=== PATIENT | female | born 1960 | race Caucasian/White ===

== ENCOUNTER 2019-05-03 12:35 | Inpatient (IN) ==
[2019-05-03] MEDS ORDERED: TUSSIONEX PENNKINETIC SUSP PO PRN (12:44)
[2019-05-03] MEDS ORDERED: LEVAQUIN PREMIX IV 500 MG 500 MG/100 ML BAG IV SCH (13:00)
--- NOTE | 2019-05-03 13:17 | DR.UPDATE ---
H&P Update History and Physical Update: History and Physical reviewed and patient examined. 05/03/2019 Changes noted: NO
--- NOTE | 2019-05-03 15:56 | RAD ---
HISTORY: Shortness of breath, pneumonia Study: Two-view chest Comparison: No priors Findings: Trachea is midline. Heart size is normal. A few linear foci atelectasis or scarring are present in the lung bases bilaterally. No dense consolidation, CHF, pleural fluid or pneumothorax seen. Osseous structures are intact. IMPRESSION: Few small subsegmental linear foci of atelectasis or scarring are present bases. No consolidation is seen. Reported By:
[2019-05-03 16:15] LABS: BASOPHILS % (AUTO) 0.7 % (0.2-1.0); EOSINOPHILS # (AUTO) 0.1 x10^3/uL (0.0-0.2); HEMATOCRIT 43.7 % (36.0-47.0); HEMOGLOBIN 14.8 g/dL (12.0-16.0); LYMPHOCYTES # (AUTO) 1.9 X10^3/uL (1.3-2.9); LYMPHOCYTES % (AUTO) 33.8 % (21.0-51.0); MEAN CORPUSCULAR HEMOGLOBIN 31.3 pg (27.0-34.0); MEAN CORPUSCULAR HGB CONC 33.8 g/dL (33.0-35.0); MEAN CORPUSCULAR VOLUME 92.7 fL (80.0-100.0); MEAN PLATELET VOLUME 7.5 fL (7.4-11.0); MONOCYTES # (AUTO) 0.4 x10^3/uL (0.3-0.8); MONOCYTES % (AUTO) 7.5 % (0.0-13.0); NEUTROPHILS # (AUTO) 3.2 x10^3/uL (2.2-4.8); PLATELET COUNT 151 X10^3/uL (150.0-450.0); RED BLOOD COUNT 4.71 X10^6/uL (3.5-5.4); RED CELL DISTRIBUTION WIDTH 14.5 % (11.6-16.5); WHITE BLOOD COUNT 5.7 X10^3/uL (3.6-10.0)
[2019-05-03 16:22] LABS: ALANINE AMINOTRANSFERASE 32 Units/L (12-78); ALKALINE PHOSPHATASE 129 Units/L (46-116); ASPARTATE AMINO TRANSFERASE 26 Units/L (15-37); BLOOD UREA NITROGEN 15 mg/dL (7-18); CALCIUM 8.6 mg/dL (8.5-10.1); CARBON DIOXIDE 28.4 mmol/L (21-32); CHLORIDE 98 mmol/L (98-107); COR NA(FOR HYPERGLY) 138 mmol/L (136-145); SODIUM 137 mmol/L (136-145); TOTAL PROTEIN 7.5 g/dL (6.4-8.2); eGFR NON BLACK RACES > 60 (>60)
[2019-05-03] MEDS ORDERED: TYLENOL 325 MG TAB PO PRN (16:36)
[2019-05-03 16:37] LABS: ABG BASE EXCESS 2.4 mmol/L (-2.0-2.0); ABG HCO3 26.4 mmol/L (22-26)
[2019-05-03 16:38] LABS: ABG ALLEN TEST POS
[2019-05-03] MEDS ORDERED: DUONEB 0.5 MG/3 MG NEB SCH (17:00)
[2019-05-03] MEDS: DUONEB 0.5 MG/3 MG NEB SCH ×2 (17:05→21:15)
[2019-05-03] MEDS ORDERED: ZOFRAN INJ 4 MG VIAL IVP PRN (17:12)
[2019-05-03] MEDS ORDERED: TYLENOL 325 MG TAB PO ONE (17:23)
[2019-05-03] MEDS ORDERED: ZOFRAN INJ 4 MG VIAL ONE (17:23)
[2019-05-03] MEDS: TYLENOL 325 MG TAB PO PRN (17:31)
[2019-05-03 17:52] VITALS: BMI 36.0
[2019-05-03] MEDS ORDERED: KLOR-CON PO PRN (18:17)
[2019-05-03] MEDS ORDERED: POTASSIUM CHL 60 MEQ/NS 0.45% 500 ML IV PRN (18:17)
[2019-05-03] MEDS ORDERED: K-RIDER 10 MEQ/NS 100 ML 10 MEQ/100 ML BAG IV PRN (18:17)
[2019-05-03] MEDS ORDERED: MAGNESIUM SULFATE 1 GRAM/100 mL PREMIX 1 GM/100 ML BAG IV PRN (18:17)
[2019-05-03] MEDS ORDERED: POTASSIUM CHL 40 MEQ/NS 0.45% 500 ML IV PRN (18:17)
[2019-05-03] MEDS ORDERED: POTASSIUM CHLORIDE LIQ 20 MEQ UDC PO PRN (18:17)
[2019-05-03] MEDS ORDERED: MICRO K EXTEN CAP 10 MEQ PO PRN (18:17)
[2019-05-03] MEDS ORDERED: K-DUR TAB 20 MEQ PO PRN (18:17)
[2019-05-03] MEDS ORDERED: NS 1/2 1000 ML IV 1,000 ML IV ONE (18:28)
[2019-05-03] MEDS: NS 1/2 1000 ML IV 1,000 ML IV SCH (18:37)
[2019-05-03] MEDS: ROBITUSSIN DM PO SCH ×3 (18:38→22:00)
[2019-05-03] MEDS ORDERED: PULMICORT NEB TX 0.5 MG NEB SCH (21:00)
[2019-05-03] MEDS: SNACK - Diabetic Appropriate PO SCH (21:00)
[2019-05-03] MEDS: BROVANA IN SCH (21:05)
[2019-05-03] MEDS: PULMICORT NEB TX 0.5 MG NEB SCH (21:15)
[2019-05-03] MEDS: RESTORIL CAP 15 MG PO PRN (22:35)
[2019-05-04 06:07] LABS: BASOPHILS % (AUTO) 0.5 % (0.2-1.0); EOSINOPHILS % (AUTO) 0.6 % (0.9-2.9); HEMATOCRIT 37.2 % (36.0-47.0); LYMPHOCYTES # (AUTO) 2.3 X10^3/uL (1.3-2.9); LYMPHOCYTES % (AUTO) 48.1 % (21.0-51.0); MEAN CORPUSCULAR HEMOGLOBIN 31.4 pg (27.0-34.0); MEAN CORPUSCULAR HGB CONC 33.8 g/dL (33.0-35.0); MEAN PLATELET VOLUME 8.2 fL (7.4-11.0); MONOCYTES # (AUTO) 0.3 x10^3/uL (0.3-0.8); MONOCYTES % (AUTO) 6.6 % (0.0-13.0); NEUTROPHILS # (AUTO) 2.1 x10^3/uL (2.2-4.8); NEUTROPHILS % (AUTO) 44.2 % (42.0-75.0); PLATELET COUNT 117 X10^3/uL (150.0-450.0); RED CELL DISTRIBUTION WIDTH 14.7 % (11.6-16.5); WHITE BLOOD COUNT 4.7 X10^3/uL (3.6-10.0)
[2019-05-04] MEDS: NS 1/2 1000 ML IV 1,000 ML IV SCH ×3 (06:07→17:03)
[2019-05-04 06:25] LABS: ALANINE AMINOTRANSFERASE 25 Units/L (12-78); ALBUMIN 3.2 g/dL (3.4-5.0); ALKALINE PHOSPHATASE 99 Units/L (46-116); ASPARTATE AMINO TRANSFERASE 22 Units/L (15-37); BLOOD UREA NITROGEN 12 mg/dL (7-18); CALCIUM 7.8 mg/dL (8.5-10.1); CARBON DIOXIDE 24.5 mmol/L (21-32); CHLORIDE 101 mmol/L (98-107); COR CA(FOR HYPOALB) 8.4 mg/dL (8.5-10.1); COR NA(FOR HYPERGLY) 139 mmol/L (136-145); CREATININE 0.77 mg/dL (0.55-1.02); HEMOGLOBIN 12.5 g/dL (12.0-16.0); MAGNESIUM 1.6 mg/dL (1.7-2.9); SODIUM 137 mmol/L (136-145); TOTAL PROTEIN 6.1 g/dL (6.4-8.2); eGFR NON BLACK RACES > 60 (>60)
[2019-05-04] MEDS: BROVANA IN SCH ×2 (08:45→21:17)
[2019-05-04] MEDS: DUONEB 0.5 MG/3 MG NEB SCH ×5 (08:50→21:07)
[2019-05-04] MEDS: PULMICORT NEB TX 0.5 MG NEB SCH ×2 (08:50→21:07)
[2019-05-04] MEDS ORDERED: LEVAQUIN PREMIX IV 500 MG 500 MG/100 ML BAG IV SCH (09:00)
[2019-05-04] MEDS ORDERED: NS 1/2 1000 ML IV 1,000 ML IV ONE (09:35)
[2019-05-04] MEDS: ROBITUSSIN DM PO SCH ×4 (09:37→21:48)
[2019-05-04] MEDS ORDERED: PHARMACY CONSULT - VANCOMYCIN XX SCH (11:00)
[2019-05-04] MEDS ORDERED: PriLOSEC PO PRN (11:01)
--- NOTE | 2019-05-04 11:01 | PCM.PROG ---
Progress Note Progress Note for Day of Date of Exam: 05/04/19 Subjective Subjective: Patient seen at bedside. She reports not feeling well for the last 3-4 weeks. She has failed multiple antibiotics outpatient for pneumonia including Levaquin, Rocephin and Amoxicillin. She reports SOB on exertion, non- productive cough. She was diagnosed with pneumonia 3 weeks ago but never got better. She also reports abdominal distention, nausea and diarrhea. She has been having lose watery stools for the last week, 3-4 times a day. CXR on admission showed atelectasis, she was directly admitted from clinic and started on levaquin. She has a hx of recurrent pneumonia, DM, HTN and seasonal allergies. She is currently on RA, sats >90%. Past Medical Family Social History Past Med/Fam/Surg Hx: No changes since H&P Allergies: Allergies Penicillins Allergy (Verified 05/03/19 16:35) Review of Systems ROS: No change since H&P Vital Signs and I&O's Vital Signs: Temperature 98.2 F Pulse Rate [Left Brachial] 94 Pulse Rate 96 Respiratory Rate 20 Blood Pressure [Left Arm] 143/74 O2 Sat by Pulse Oximetry 96 Intake and Output: Intake & Output 05/01/19 05/02/19 05/03/19 05/04/19 23:59 23:59 23:59 23:59 Intake Total 1040 / 1040 1040 / 1040 Balance 1040 / 1040 1040 / 1040 Physical Exam Oriented: Normal Eyes: Normal Nose: Normal Throat: Normal Respiratory: Wheezes and Rhonchi Cardiovascular: Normal Auscultation: Bowel Sounds: Normal Tenderness: Other (distended) Skin: Normal Musculoskeletal: Normal Psychiatric: Normal Mood Description: Calm Speech Pattern: Clear and Appropriate Laboratory and Diagnostics Result Diagrams: 05/04/19 04:47 05/04/19 04:47 Labs: 05/03/19 16:32 Sputum - Expectorated Sputum - Final Laboratory WBC 4.7 X10^3/uL (3.6-10.0) 05/04/19 04:47 RBC 4.00 X10^6/uL (3.5-5.4) 05/04/19 04:47 Hgb 12.5 g/dL (12.0-16.0) D 05/04/19 04:47 Hct 37.2 % (36.0-47.0) 05/04/19 04:47 MCV 93.0 fL (80.0-100.0) 05/04/19 04:47 MCH 31.4 pg (27.0-34.0) 05/04/19 04:47 MCHC 33.8 g/dL (33.0-35.0) 05/04/19 04:47 RDW 14.7 % (11.6-16.5) 05/04/19 04:47 Plt Count 117 X10^3/uL (150.0-450.0) L 05/04/19 04:47 MPV 8.2 fL (7.4-11.0) 05/04/19 04:47 Neut % (Auto) 44.2 % (42.0-75.0) 05/04/19 04:47 Lymph % (Auto) 48.1 % (21.0-51.0) 05/04/19 04:47 [place] % (Auto) 6.6 % (0.0-13.0) 05/04/19 04:47 Eos % (Auto) 0.6 % (0.9-2.9) L 05/04/19 04:47 Baso % (Auto) 0.5 % (0.2-1.0) 05/04/19 04:47 Neut # (Auto) 2.1 x10^3/uL (2.2-4.8) L 05/04/19 04:47 Lymph # (Auto) 2.3 X10^3/uL (1.3-2.9) 05/04/19 04:47 [place] # (Auto) 0.3 x10^3/uL (0.3-0.8) 05/04/19 04:47 Eos # (Auto) 0.0 x10^3/uL (0.0-0.2) 05/04/19 04:47 Baso # (Auto) 0.0 X10^3/uL (0.0-0.1) 05/04/19 04:47 Absolute Nucleated RBC 0.1 /100WBC 05/04/19 04:47 D-Dimer 258 ng/mL (0-400) 05/03/19 15:59 Sample Site Rra 05/03/19 16:33 ABG pH 7.450 (7.35-7.45) 05/03/19 16:33 ABG pCO2 38.0 mmHg (35.0-45.0) 05/03/19 16:33 ABG pO2 68.0 mmHg (80.0-100.0) L 05/03/19 16:33 ABG HCO3 26.4 mmol/L (22-26) H 05/03/19 16:33 ABG O2 Saturation 94.0 % (90-100) 05/03/19 16:33 ABG Base Excess 2.4 mmol/L (-2.0-2.0) H 05/03/19 16:33 Rafa Test Pos 05/03/19 16:33 A-a Gradient 34.0 mmHg 05/03/19 16:33 FiO2 21.0 05/03/19 16:33 Blood Gas Comments Pt toll well eb 05/03/19 16:33 Sodium 137 mmol/L (136-145) 05/04/19 04:47 Corrected Sodium 139 mmol/L (136-145) 05/04/19 04:47 Potassium 3.5 mmol/L (3.5-5.1) 05/04/19 04:47 Chloride 101 mmol/L (98-107) 05/04/19 04:47 Carbon Dioxide 24.5 mmol/L (21-32) 05/04/19 04:47 BUN 12 mg/dL (7-18) 05/04/19 04:47 Creatinine 0.77 mg/dL (0.55-1.02) 05/04/19 04:47 Est GFR (MDRD) Af Amer > 60 (>60) 05/04/19 04:47 Est GFR (MDRD) Non-Af > 60 (>60) 05/04/19 04:47 Glucose 168 mg/dL (65-99) H 05/04/19 04:47 POC Glucose (mg/dL) 142 mg/dL (65-99) H 05/04/19 07:07 Calcium 7.8 mg/dL (8.5-10.1) L 05/04/19 04:47 Corrected Calcium 8.4 mg/dL (8.5-10.1) L 05/04/19 04:47 Magnesium 1.6 mg/dL (1.7-2.9) L 05/04/19 04:47 Total Bilirubin 0.40 mg/dL (0.2-1.0) 05/04/19 04:47 AST 22 Units/L (15-37) 05/04/19 04:47 ALT 25 Units/L (12-78) 05/04/19 04:47 Alkaline Phosphatase 99 Units/L (46-116) 05/04/19 04:47 Total Protein 6.1 g/dL (6.4-8.2) L 05/04/19 04:47 Albumin 3.2 g/dL (3.4-5.0) L 05/04/19 04:47 Globulin 2.9 g/dL (2.5-4.5) 05/04/19 04:47 Albumin/Globulin Ratio 1.1 Ratio (1.1-2.1) 05/04/19 04:47 Plan (1) Failure of outpatient treatment: Status: Acute (2) Atelectasis: Status: Acute (3) Pneumonia: Status: Acute Plan: Patient failed outpatient treatment with Levaquin, Rocephin, Amoxicillin and steroids. Started on levaquin on admission, will switch to Vancomyin and Cefepime to broaden coverage, add solumedrol Ct-chest ordered (4) Abdominal distension: Status: Acute Plan: ordered KUB (5) Thrombocytopenia: Status: Acute Plan: plt:117, repeat CBC in AM (6) Diarrhea: Status: Acute Plan: lose water stools, will check C.diff, fecal WBCs, stool culture (7) Hypertension: Status: Acute (8) Seasonal allergies: Status: Acute (9) Diabetes: Status: Acute
--- NOTE | 2019-05-04 11:21 | RAD ---
Examination: KUB History: Abdominal distention Findings: The intestinal gas pattern is normal and nonobstructive. There is no evidence for organ enlargement, mass, ascites or pathologic calcification. Impression: Examination within normal limits. Reported By:
[2019-05-04] MEDS ORDERED: ZESTRIL TAB 20 MG ONE (11:22)
[2019-05-04] MEDS: TYLENOL 325 MG TAB PO PRN (11:27)
[2019-05-04] MEDS: ZESTRIL TAB 20 MG PO SCH (11:28)
[2019-05-04] MEDS: SOLU-Medrol 125 MG VIAL IVP SCH ×3 (11:29→21:51)
[2019-05-04] MEDS: MAXIPIME VIAL 1 GRAM IVP SCH ×2 (11:29→21:51)
[2019-05-04] MEDS ORDERED: VANCOMYCIN HCL 250 MG, VANCOMYCIN HCL 1 G in D5W 250 ML IV 250 ML IV SCH (12:00)
[2019-05-04] MEDS ORDERED: VANCOMYCIN HCL ONE ×4 (12:00→23:55)
[2019-05-04] MEDS ORDERED: NS 250 ML IV 250 ML IV ONE ×2 (12:00→23:54)
[2019-05-04] MEDS: HumuLIN R SUBCUT PRN ×3 (12:15→21:52)
--- NOTE | 2019-05-04 14:03 | CT ---
HISTORY: Dyspnea and infection. Study: CT chest without contrast Comparison: Chest radiograph dated 05/03/2019 Technique: Multiple axial images of the chest were obtained from the thoracic inlet to the upper abdomen without the administration of IV contrast. Findings: The thoracic inlet is unremarkable. There is scattered aortic atherosclerosis. The heart is normal in size without a pericardial effusion. Dense coronary atherosclerosis is present. There are patchy, diffuse, airspace and ground-glass changes seen throughout the lung [place], most severe in the right lower lobe. These findings can be seen with infectious etiologies, inflammation, or atypical infarctions. This needs clinical context. No aneurysm or pathologic adenopathy is seen. No axillary adenopathy is observed. There is hepatic steatosis. The upper abdomen shows no other acute findings. No other cardiopulmonary abnormality is seen. No acute fracture or destructive lytic bony lesion is observed. There is mild spinal spondylosis appreciated. IMPRESSION: Patchy, diffuse, airspace and ground-glass changes seen throughout the lung [place], most severe in the right lower lobe. These findings can be seen with infectious etiologies, inflammation, or atypical infarctions. This needs clinical context. Follow-up to complete resolution is recommended following appropriate treatment. Hepatic steatosis also noted. Reported By:
[2019-05-04] MEDS: MAG-OX TAB PO SCH (14:13)
[2019-05-04 15:33] LABS: RHEUMATOID FACTOR NEGATIVE (NEGATIVE)
[2019-05-04 15:53] LABS: MYCOPLASMA PNEUMONIAE IGM AB NEGATIVE (NEGATIVE)
[2019-05-04] MEDS: SNACK - Diabetic Appropriate PO SCH (21:47)
[2019-05-04] MEDS: NEURONTIN CAP 300 MG PO SCH (21:50)
[2019-05-04] MEDS: SINGULAIR TAB 10 MG PO SCH (21:50)
[2019-05-04] MEDS: RESTORIL CAP 15 MG PO PRN (22:30)
[2019-05-04] MEDS ORDERED: NS IV SCH (23:59)
[2019-05-04] MEDS ORDERED: VANCOMYCIN HCL IV SCH (23:59)
[2019-05-05 06:08] LABS: BASOPHILS % (AUTO) 0.2 % (0.2-1.0); EOSINOPHILS % (AUTO) 0.1 % (0.9-2.9); HEMATOCRIT 37.4 % (36.0-47.0); HEMOGLOBIN 12.7 g/dL (12.0-16.0); LYMPHOCYTES % (AUTO) 15.8 % (21.0-51.0); MEAN CORPUSCULAR HEMOGLOBIN 31.9 pg (27.0-34.0); MEAN CORPUSCULAR VOLUME 93.9 fL (80.0-100.0); MEAN PLATELET VOLUME 8.4 fL (7.4-11.0); MONOCYTES # (AUTO) 0.2 x10^3/uL (0.3-0.8); MONOCYTES % (AUTO) 2.8 % (0.0-13.0); NEUTROPHILS # (AUTO) 5.1 x10^3/uL (2.2-4.8); NEUTROPHILS % (AUTO) 81.1 % (42.0-75.0); PLATELET COUNT 129 X10^3/uL (150.0-450.0); RED BLOOD COUNT 3.98 X10^6/uL (3.5-5.4); RED CELL DISTRIBUTION WIDTH 14.6 % (11.6-16.5); WHITE BLOOD COUNT 6.3 X10^3/uL (3.6-10.0)
[2019-05-05] MEDS: SOLU-Medrol 125 MG VIAL IVP SCH ×3 (06:18→21:50)
[2019-05-05] MEDS: MAG-OX TAB PO SCH (06:18)
[2019-05-05] MEDS: NS 1/2 1000 ML IV 1,000 ML IV SCH ×3 (06:19→22:21)
[2019-05-05] MEDS: HumuLIN R SUBCUT PRN ×4 (06:21→22:45)
[2019-05-05 06:24] LABS: BLOOD UREA NITROGEN 14 mg/dL (7-18); CALCIUM 8.3 mg/dL (8.5-10.1); CHLORIDE 104 mmol/L (98-107); COR NA(FOR HYPERGLY) 142 mmol/L (136-145); CREATININE 0.78 mg/dL (0.55-1.02); MAGNESIUM 1.8 mg/dL (1.7-2.9); SODIUM 138 mmol/L (136-145); eGFR NON BLACK RACES > 60 (>60)
[2019-05-05] MEDS: DUONEB 0.5 MG/3 MG NEB SCH ×4 (08:24→20:17)
[2019-05-05] MEDS: PULMICORT NEB TX 0.5 MG NEB SCH ×2 (08:24→20:17)
[2019-05-05] MEDS: BROVANA IN SCH ×2 (08:34→20:35)
[2019-05-05] MEDS ORDERED: ZESTRIL TAB 20 MG ONE (08:53)
[2019-05-05] MEDS: MAXIPIME VIAL 1 GRAM IVP SCH ×2 (09:04→21:50)
[2019-05-05] MEDS: ROBITUSSIN DM PO SCH ×4 (09:04→21:50)
[2019-05-05] MEDS: ZESTRIL TAB 20 MG PO SCH (09:05)
[2019-05-05] MEDS ORDERED: NS 250 ML IV 250 ML IV ONE ×2 (09:15→22:40)
[2019-05-05] MEDS ORDERED: VANCOMYCIN HCL ONE ×4 (09:15→22:40)
[2019-05-05] MEDS: VANCOMYCIN HCL IV SCH ×5 (09:19→22:51)
[2019-05-05] MEDS: NS IV SCH ×5 (09:19→22:51)
[2019-05-05] MEDS ORDERED: MYLICON TAB 80 MG CHEW PO PRN (09:56)
[2019-05-05] MEDS ORDERED: MIRALAX POWDER (1 DOSE 17 G) PO STA (09:56)
[2019-05-05] MEDS ORDERED: MIRALAX POWDER (1 DOSE 17 G) ONE (10:02)
--- NOTE | 2019-05-05 11:21 | PCM.PROG ---
Progress Note Progress Note for Day of Date of Exam: 05/05/19 Subjective Subjective: Patient seen this AM, reports feeling a lot better, breathing has improved. She still feels very bloated, no BM since admission. She has been eating and drinking ok, denies nausea or vomiting. Still has some dry cough. Denies fever or chills. CT chest yesterday showed some patchy ground glass opacities suggestive of infection vs inflammation. She does see a hide mill worker for arthritis and has extensive work up but not diagnosed with anything. KUB done yesterday was negative. Past Medical Family Social History Past Med/Fam/Surg Hx: No changes since H&P Allergies: Allergies Penicillins Allergy (Verified 05/03/19 16:35) Review of Systems ROS: No change since H&P Vital Signs and I&O's Vital Signs: Temperature 98.3 F Pulse Rate [Left Brachial] 92 Pulse Rate 113 Respiratory Rate 18 Blood Pressure [Left Arm] 142/83 O2 Sat by Pulse Oximetry 94 Intake and Output: Intake & Output 05/02/19 05/03/19 05/04/19 05/05/19 23:59 23:59 23:59 23:59 Intake Total 1040 / 1040 4460 / 4460 750 / 750 Balance 1040 / 1040 4460 / 4460 750 / 750 Physical Exam Oriented: Normal Eyes: Normal Nose: Normal Throat: Normal Respiratory: Wheezes and Rhonchi (improved) Cardiovascular: Normal Auscultation: Bowel Sounds: Normal Tenderness: Other (distended, tightness, firm) Skin: Normal Musculoskeletal: Normal Psychiatric: Normal Mood Description: Calm Speech Pattern: Clear and Appropriate Laboratory and Diagnostics Result Diagrams: 05/05/19 04:32 05/05/19 04:32 Labs: 05/05/19 10:10 Stool - Final 05/03/19 16:32 Sputum - Expectorated Sputum Sputum Culture - Preliminary 05/03/19 16:32 Sputum - Expectorated Sputum - Final 05/03/19 15:59 Blood Blood Culture - Preliminary 05/03/19 15:54 Blood Blood Culture - Preliminary Laboratory WBC 6.3 X10^3/uL (3.6-10.0) 05/05/19 04:32 RBC 3.98 X10^6/uL (3.5-5.4) 05/05/19 04:32 Hgb 12.7 g/dL (12.0-16.0) 05/05/19 04:32 Hct 37.4 % (36.0-47.0) 05/05/19 04:32 MCV 93.9 fL (80.0-100.0) 05/05/19 04:32 MCH 31.9 pg (27.0-34.0) 05/05/19 04:32 MCHC 34.0 g/dL (33.0-35.0) 05/05/19 04:32 RDW 14.6 % (11.6-16.5) 05/05/19 04:32 Plt Count 129 X10^3/uL (150.0-450.0) L 05/05/19 04:32 MPV 8.4 fL (7.4-11.0) 05/05/19 04:32 Neut % (Auto) 81.1 % (42.0-75.0) H 05/05/19 04:32 Lymph % (Auto) 15.8 % (21.0-51.0) L 05/05/19 04:32 [place] % (Auto) 2.8 % (0.0-13.0) 05/05/19 04:32 Eos % (Auto) 0.1 % (0.9-2.9) L 05/05/19 04:32 Baso % (Auto) 0.2 % (0.2-1.0) 05/05/19 04:32 Neut # (Auto) 5.1 x10^3/uL (2.2-4.8) H 05/05/19 04:32 Lymph # (Auto) 1.0 X10^3/uL (1.3-2.9) L 05/05/19 04:32 [place] # (Auto) 0.2 x10^3/uL (0.3-0.8) L 05/05/19 04:32 Eos # (Auto) 0.0 x10^3/uL (0.0-0.2) 05/05/19 04:32 Baso # (Auto) 0.0 X10^3/uL (0.0-0.1) 05/05/19 04:32 Absolute Nucleated RBC 0.1 /100WBC 05/05/19 04:32 ESR 25 MM/HOUR (0-20) H 05/04/19 14:50 D-Dimer 258 ng/mL (0-400) 05/03/19 15:59 Sample Site Rra 05/03/19 16:33 ABG pH 7.450 (7.35-7.45) 05/03/19 16:33 ABG pCO2 38.0 mmHg (35.0-45.0) 05/03/19 16:33 ABG pO2 68.0 mmHg (80.0-100.0) L 05/03/19 16:33 ABG HCO3 26.4 mmol/L (22-26) H 05/03/19 16:33 ABG O2 Saturation 94.0 % (90-100) 05/03/19 16:33 ABG Base Excess 2.4 mmol/L (-2.0-2.0) H 05/03/19 16:33 Rafa Test Pos 05/03/19 16:33 A-a Gradient 34.0 mmHg 05/03/19 16:33 FiO2 21.0 05/03/19 16:33 Blood Gas Comments Pt toll well eb 05/03/19 16:33 Sodium 138 mmol/L (136-145) 05/05/19 04:32 Corrected Sodium 142 mmol/L (136-145) 05/05/19 04:32 Potassium 4.7 mmol/L (3.5-5.1) 05/05/19 04:32 Chloride 104 mmol/L (98-107) 05/05/19 04:32 Carbon Dioxide 22.0 mmol/L (21-32) 05/05/19 04:32 BUN 14 mg/dL (7-18) 05/05/19 04:32 Creatinine 0.78 mg/dL (0.55-1.02) 05/05/19 04:32 Est GFR (MDRD) Af Amer > 60 (>60) 05/05/19 04:32 Est GFR (MDRD) Non-Af > 60 (>60) 05/05/19 04:32 Glucose 255 mg/dL (65-99) H 05/05/19 04:32 POC Glucose (mg/dL) 251 mg/dL (65-99) H 05/05/19 11:09 Calcium 8.3 mg/dL (8.5-10.1) L 05/05/19 04:32 Corrected Calcium 8.4 mg/dL (8.5-10.1) L 05/04/19 04:47 Magnesium 1.8 mg/dL (1.7-2.9) 05/05/19 04:32 Total Bilirubin 0.40 mg/dL (0.2-1.0) 05/04/19 04:47 AST 22 Units/L (15-37) 05/04/19 04:47 ALT 25 Units/L (12-78) 05/04/19 04:47 Alkaline Phosphatase 99 Units/L (46-116) 05/04/19 04:47 B-Natriuretic Peptide 23.1 pg/mL (0-79) 05/04/19 14:50 Total Protein 6.1 g/dL (6.4-8.2) L 05/04/19 04:47 Albumin 3.2 g/dL (3.4-5.0) L 05/04/19 04:47 Globulin 2.9 g/dL (2.5-4.5) 05/04/19 04:47 Albumin/Globulin Ratio 1.1 Ratio (1.1-2.1) 05/04/19 04:47 Stool for White Cells Negative (NEGATIVE) 05/05/19 10:10 Stl C. diff Tox B Gene Negative (NEGATIVE) 05/05/19 10:10 Stl C. diff [id number] Negative (NEGATIVE) 05/05/19 10:10 Rheumatoid Factor Negative (NEGATIVE) 05/04/19 14:50 Mycoplasma pneumon IgG Negative (NEGATIVE) 05/04/19 04:47 Plan (1) Failure of outpatient treatment: Status: Acute (2) Atelectasis: Status: Acute (3) Pneumonia: Status: Acute Plan: Patient failed outpatient treatment with Levaquin, Rocephin, Amoxicillin and steroids. CT-chest: patchy ground glass opacities suggestive of infection, inflammation or atypical infarction. Mycoplasma (-), RF (-), CASSY, ESR pending. Currently on Vancomycin, Cefepime, steroids. Sputum cultures pending (4) Abdominal distension: Status: Acute Plan: KUB (-), will add miralax, simethicone. Consider CTAP if no improvement in Sx. (5) Thrombocytopenia: Status: Acute Plan: plt: 129, continue to monitor (6) Diarrhea: Status: Acute Plan: no BM since admission, was having diarrhea prior to coming. Stool studies pending (7) Hypertension: Status: Acute (8) Seasonal allergies: Status: Acute (9) Diabetes: Status: Acute
[2019-05-05] MEDS ORDERED: NS 1/2 1000 ML IV 1,000 ML IV ONE (16:36)
[2019-05-05] MEDS ORDERED: FLONASE NASAL SPRAY ENOSTRIL ONE (16:37)
[2019-05-05] MEDS: FLONASE NASAL SPRAY ENOSTRIL SCH (16:40)
[2019-05-05] MEDS ORDERED: PHARMACY COMMENT IV NR (20:30)
[2019-05-05] MEDS ORDERED: ASTELIN NASAL SPRAY ENOSTRIL ONE (21:02)
[2019-05-05] MEDS: NEURONTIN CAP 300 MG PO SCH (21:50)
[2019-05-05] MEDS: SINGULAIR TAB 10 MG PO SCH (21:50)
[2019-05-05] MEDS: ASTELIN NASAL SPRAY ENOSTRIL SCH (21:50)
[2019-05-05 22:09] LABS: CREATININE 0.95 mg/dL (0.55-1.02); VANCOMYCIN,TROUGH 7.4 ug/mL (15-20)
[2019-05-05] MEDS: SNACK - Diabetic Appropriate PO SCH (22:19)
[2019-05-05] MEDS: TYLENOL 325 MG TAB PO PRN (22:35)
[2019-05-05] MEDS: RESTORIL CAP 15 MG PO PRN (23:23)
[2019-05-06 05:14] LABS: BASOPHILS % (AUTO) 0 % (0.2-1.0); HEMATOCRIT 35.8 % (36.0-47.0); HEMOGLOBIN 11.8 g/dL (12.0-16.0); LYMPHOCYTES # (AUTO) 1.2 X10^3/uL (1.3-2.9); LYMPHOCYTES % (AUTO) 11.1 % (21.0-51.0); MEAN CORPUSCULAR HEMOGLOBIN 31.4 pg (27.0-34.0); MEAN CORPUSCULAR HGB CONC 32.9 g/dL (33.0-35.0); MEAN CORPUSCULAR VOLUME 95.4 fL (80.0-100.0); MEAN PLATELET VOLUME 8.4 fL (7.4-11.0); MONOCYTES # (AUTO) 0.4 x10^3/uL (0.3-0.8); MONOCYTES % (AUTO) 3.7 % (0.0-13.0); NEUTROPHILS # (AUTO) 9.4 x10^3/uL (2.2-4.8); NEUTROPHILS % (AUTO) 85.2 % (42.0-75.0); PLATELET COUNT 155 X10^3/uL (150.0-450.0); RED BLOOD COUNT 3.75 X10^6/uL (3.5-5.4); RED CELL DISTRIBUTION WIDTH 14.8 % (11.6-16.5)
[2019-05-06 05:16] LABS: BLOOD UREA NITROGEN 19 mg/dL (7-18); CALCIUM 8.3 mg/dL (8.5-10.1); CARBON DIOXIDE 21.5 mmol/L (21-32); CHLORIDE 106 mmol/L (98-107); COR NA(FOR HYPERGLY) 144 mmol/L (136-145); CREATININE 0.91 mg/dL (0.55-1.02); SODIUM 139 mmol/L (136-145); eGFR NON BLACK RACES > 60 (>60)
[2019-05-06] MEDS: SOLU-Medrol 125 MG VIAL IVP SCH (06:08)
[2019-05-06] MEDS: HumuLIN R SUBCUT PRN ×3 (06:38→21:07)
[2019-05-06] MEDS: MAG-OX TAB PO SCH (06:38)
[2019-05-06] MEDS: BROVANA IN SCH ×2 (07:59→21:25)
[2019-05-06] MEDS: PULMICORT NEB TX 0.5 MG NEB SCH ×2 (08:04→21:15)
[2019-05-06] MEDS: DUONEB 0.5 MG/3 MG NEB SCH ×4 (08:04→21:15)
[2019-05-06] MEDS ORDERED: REGLAN INJ 10 MG VIAL IVP PRN (08:37)
[2019-05-06] MEDS: FLONASE NASAL SPRAY ENOSTRIL SCH (08:39)
[2019-05-06] MEDS: ROBITUSSIN DM PO SCH ×4 (08:40→21:06)
[2019-05-06] MEDS: MAXIPIME VIAL 1 GRAM IVP SCH ×2 (08:40→21:06)
[2019-05-06] MEDS: ASTELIN NASAL SPRAY ENOSTRIL SCH ×2 (08:40→21:05)
[2019-05-06] MEDS ORDERED: ZESTRIL TAB 20 MG ONE (08:54)
[2019-05-06] MEDS: ZESTRIL TAB 20 MG PO SCH (08:58)
[2019-05-06] MEDS: TYLENOL 325 MG TAB PO PRN (08:59)
[2019-05-06] MEDS: VANCOMYCIN HCL IV SCH ×2 (10:08→22:26)
[2019-05-06] MEDS: NS IV SCH ×2 (10:08→22:26)
[2019-05-06] MEDS: PROTONIX INJ 40 MG VIAL IVP SCH (10:56)
[2019-05-06] MEDS: NS 1/2 1000 ML IV 1,000 ML IV SCH ×2 (11:48→21:07)
[2019-05-06 13:19] LABS: AMYLASE 28 Units/L (25-115); LIPASE 145 Units/L (73-393)
--- NOTE | 2019-05-06 13:28 | RAD ---
History: Pneumonia Study: PA and lateral chest Comparison: May 03, 2019 Findings: The lungs appear grossly clear. There is no edema or effusion. The heart and mediastinum are unremarkable. CT demonstrated ground-glass changes are not evident on this plain film examination. Impression: No evidence for acute cardiopulmonary disease Reported By:
--- NOTE | 2019-05-06 13:37 | US ---
History: Bloating and nausea Study: Ultrasound of the right upper quadrant of the abdomen Comparison: None Findings: The right lobe of the liver measures 16.7 cm sagittal length without focal mass. Echogenicity is compatible with diffuse fatty infiltration. There is appropriate flow in the portal vein and hepatic veins The gallbladder is normal in size without wall thickening or stone or sludge. The common hepatic duct measures 4.3 mm diameter. The right kidney measures 9.5 x 5 x 5 cm with cortical thickness of 1.6 cm and a resistive index of 0.64. There is no hydronephrosis or renal mass. The visualized pancreas is unremarkable. No free fluid is demonstrated. Impression: Negative except for fatty infiltration of the liver Reported By:
[2019-05-06] MEDS ORDERED: NS 1/2 1000 ML IV 1,000 ML IV ONE (17:08)
[2019-05-06] MEDS: SNACK - Diabetic Appropriate PO SCH (20:00)
[2019-05-06] MEDS ORDERED: PHARMACY COMMENT IV NR (20:30)
[2019-05-06] MEDS: NEURONTIN CAP 300 MG PO SCH (21:06)
[2019-05-06] MEDS: RESTORIL CAP 15 MG PO PRN (21:06)
[2019-05-06] MEDS: SINGULAIR TAB 10 MG PO SCH (21:06)
[2019-05-06] MEDS ORDERED: VANCOMYCIN HCL ONE (22:57)
[2019-05-06] MEDS: VANCOMYCIN HCL 500 MG, VANCOMYCIN HCL 1 G in NS 250 ML IV 250 ML IV SCH (23:02)
[2019-05-07 05:08] LABS: BASOPHILS % (AUTO) 0.1 % (0.2-1.0); HEMATOCRIT 33.6 % (36.0-47.0); HEMOGLOBIN 11.4 g/dL (12.0-16.0); LYMPHOCYTES # (AUTO) 2.2 X10^3/uL (1.3-2.9); LYMPHOCYTES % (AUTO) 25.7 % (21.0-51.0); MEAN CORPUSCULAR HEMOGLOBIN 31.9 pg (27.0-34.0); MEAN CORPUSCULAR HGB CONC 34.1 g/dL (33.0-35.0); MEAN CORPUSCULAR VOLUME 93.6 fL (80.0-100.0); MEAN PLATELET VOLUME 7.8 fL (7.4-11.0); MONOCYTES # (AUTO) 0.6 x10^3/uL (0.3-0.8); MONOCYTES % (AUTO) 6.8 % (0.0-13.0); NEUTROPHILS # (AUTO) 5.8 x10^3/uL (2.2-4.8); NEUTROPHILS % (AUTO) 67.4 % (42.0-75.0); PLATELET COUNT 165 X10^3/uL (150.0-450.0); RED BLOOD COUNT 3.59 X10^6/uL (3.5-5.4); WHITE BLOOD COUNT 8.6 X10^3/uL (3.6-10.0)
[2019-05-07 05:14] LABS: ALANINE AMINOTRANSFERASE 48 Units/L (12-78); ALKALINE PHOSPHATASE 94 Units/L (46-116); ASPARTATE AMINO TRANSFERASE 36 Units/L (15-37); BLOOD UREA NITROGEN 19 mg/dL (7-18); CALCIUM 8.1 mg/dL (8.5-10.1); CARBON DIOXIDE 22.9 mmol/L (21-32); CHLORIDE 110 mmol/L (98-107); COR CA(FOR HYPOALB) 8.9 mg/dL (8.5-10.1); COR NA(FOR HYPERGLY) 144 mmol/L (136-145); CREATININE 0.87 mg/dL (0.55-1.02); SODIUM 143 mmol/L (136-145); TOTAL PROTEIN 5.8 g/dL (6.4-8.2); eGFR NON BLACK RACES > 60 (>60)
[2019-05-07] MEDS: NS 1/2 1000 ML IV 1,000 ML IV SCH (05:35)
[2019-05-07] MEDS: MAG-OX TAB PO SCH (06:00)
[2019-05-07] MEDS: ROBITUSSIN DM PO SCH (08:14)
[2019-05-07] MEDS: PROTONIX INJ 40 MG VIAL IVP SCH (08:15)
[2019-05-07] MEDS: ZESTRIL TAB 20 MG PO SCH (08:15)
[2019-05-07] MEDS: MAXIPIME VIAL 1 GRAM IVP SCH (08:16)
[2019-05-07] MEDS: ASTELIN NASAL SPRAY ENOSTRIL SCH (08:16)
[2019-05-07] MEDS: FLONASE NASAL SPRAY ENOSTRIL SCH (08:17)
[2019-05-07] MEDS: VANCOMYCIN HCL 500 MG, VANCOMYCIN HCL 1 G in NS 250 ML IV 250 ML IV SCH (08:18)
[2019-05-07] MEDS: TYLENOL 325 MG TAB PO PRN (08:21)
[2019-05-07 08:47] VITALS: BP 150/71
[2019-05-07] MEDS: BROVANA IN SCH (09:12)
[2019-05-07] MEDS: PULMICORT NEB TX 0.5 MG NEB SCH (09:15)
[2019-05-07] MEDS: DUONEB 0.5 MG/3 MG NEB SCH (09:15)
[2019-05-08 06:19] LABS: ANTI-NUCLEAR ANTIBODY TEST None Detected (None Detected)
[2019-05-08] MEDS ORDERED: PHARMACY COMMENT IV NR (20:30)
== END 2019-05-07 11:30 | disposition home or self-care (01) | DRG 194 ==
LOC: MED/SURG
PROVIDERS: ADMIT Internal Medicine; ATTEND Internal Medicine
DX: R19.7 Diarrhea, unspecified; R70.0 Elevated erythrocyte sedimentation rate; Z78.9 Other specified health status; I10 Essential (primary) hypertension; E11.65 Type 2 diabetes mellitus with hyperglycemia; J30.2 Other seasonal allergic rhinitis; J18.8 Other pneumonia, unspecified organism; D69.6 Thrombocytopenia, unspecified; J98.11 Atelectasis; J44.9 Chronic obstructive pulmonary disease, unspecified
CPT/HCPCS: 36415; 36600; 71020; 71046; 71250; 74000; 74018; 76705; 80048; 80053; 80202; 82150; 82565; 82803; 83630; 83690; 83735; 83880; 85025; 85378; 85652; 86038; 86308; 86430; 86738; 87040; 87045; 87070; 87102; 87205; 87427; 87449; 87493; 87899; 94640; 94669; 94760; A4222; C9113; G0378; J0692; J1815; J1956; J2405; J2930; J3370; J3490; J7050; J7620; J7626